=== PATIENT | female | born 1980 | race Caucasian/White ===

== ENCOUNTER → 2020-03-19 14:43 | Outpatient (CLI) | payer BC, SELFPAY ==
--- NOTE | 2020-03-19 14:49 | CT_ITS ---
STUDY: CT MAXILLOFACIAL SINUSES REASON FOR EXAM: Female, 39 years old. Chronic sinusitis. No prior surgery. [employer] navigation protocol. RADIATION DOSAGE (If Supplied By Facility): CTDIvol = ( 33.06 ) mGy, DLP = ( 817.32 ) mGycm TECHNIQUE: The patient was scanned in a multi detector CT scanner. High resolution axial imaging was performed without the administration of intravenous contrast material. Sagittal and coronal images were reconstructed. Individualized dose optimization techniques were used for this CT. COMPARISON: None. FINDINGS: FRONTAL SINUSES: Aplastic ETHMOIDAL SINUSES: Normal aeration, without mucosal inflammatory disease. MAXILLARY SINUSES: Large mucous retention cyst within the maxillary sinuses bilaterally consistent with chronic sinusitis. SPHENOIDAL SINUSES: Normal aeration, without mucosal inflammatory disease. There is patency of the bilateral maxillary infundibuli with normal uncinate processes, ethmoid bullae, and hiatus semilunaris. There are anthony bullosa of the bilateral turbinates. Normal bilateral inferior turbinates. There is a left sided nasal septal deviation, but without a nasal septal spur. There is a large (3 x 4 cm) mucous retention cyst in the posterior aspect of the left nasal cavity extending into the nasopharynx with near-total obstruction of the airway at the level the nasopharynx. This extends inferiorly into the superior aspect of the oropharynx posterior to the uvula. The visualized osseous structures are normal. The visualized bilateral orbital contents are normal. CT/Sinus/Facial Bone IMPRESSION: 1. Chronic sinusitis with large mucous retention cysts in the maxillary sinuses bilaterally. Patent ostiomeatal units bilaterally. 2. Bilateral anthony bullosa and slight deviation nasal septum to the left. 3. Large (3 x 4 cm) mucous retention cyst of the posterior aspect of the left nasal cavity extending posteriorly and inferiorly into the nasopharynx with near the obstruction of the airway. Electronically Signed: Robert Grace MD at 15:14 EST Tel , Service support ,
== END ==
PROVIDERS: PCP Physician Assistant Medical; Referring Provider Otolaryngology Otolaryngic Allergy; Visit Provider Otolaryngology Otolaryngic Allergy
DX: J32.0 Chronic maxillary sinusitis (principal); J33.0 Polyp of nasal cavity
CPT/HCPCS: 70486

== ENCOUNTER → 2022-09-01 | Outpatient (CLI) | payer BC, SELFPAY ==
[2022-09-05 06:07] LABS: Chlamydia By Nucleic Acid AMP Negative (Negative); Gonococcus By Nucleic Acid AMP Negative (Negative)
[2022-09-07 12:08] LABS: HPV APTIMA, High Risk Negative (Negative)
== END | disposition home or self-care (01) ==
PROVIDERS: PCP Physician Assistant Medical; Referring Provider Nurse Practitioner Women's Health; Visit Provider Nurse Practitioner Women's Health
DX: Z11.3 Encounter for screening for infections with a predominantly sexual mode of transmission (principal); Z12.4 Encounter for screening for malignant neoplasm of cervix
CPT/HCPCS: 87491; 87591; 87624; 88175; G0145

== ENCOUNTER → 2022-09-12 | Outpatient (CLI) | payer BC, SELFPAY ==
--- NOTE | 2022-09-12 15:30 | EMB_PTH ---
PATIENT: DARWIN GILES LOC: [facility] U#:[id number] AGE/SX: 41/F ROOM: RE09/12/[address]: Dr. Aida Rodriguez MD : 1980 BED: DIS: 09/12/2022 SPEC #: [id number] RECD: 09/12/22 16:26 STATUS: ROMEL GAMAL #: [id number] KEYSHA: 09/12/22 15:[address]: Aida Rodriguez DEPT: SURGICAL PATHOLOGY RECD BY: Caleb Nava ENTERED: 09/13/22 18:25 SP TYPE: ENDOM BX/C MEHNAZ DR: KAYLA Stanton Tissues: Endometrium, NOS Procedures: Surgery Specimen Level IV HEADER OPERATION: Endometrial biopsy PRE-OP DIAGNOSIS: Abnormal uterine bleeding TISSUE SUBMITTED: Endometrial lining MICROSCOPIC DIAGNOSIS Endometrium, biopsy: Secretory endometrium. AM:fela 09/15/2022 MICROSCOPIC DESCRIPTION Slides are reviewed. GROSS DESCRIPTION Received is one container labeled with the patient's name and not further designated. The specimen consists of multiple fragments of hemorrhagic soft tissue that in aggregate measure 3.0 x 2.5 x 0.3 cm. The specimen is totally submitted in one cassette. / SJ:fela 09/14/2022 TC:5 CPT: 28057
== END | disposition home or self-care (01) ==
LOC: LABSPEC 16:34
PROVIDERS: PCP Physician Assistant Medical; Referring Provider Obstetrics & Gynecology; Visit Provider Obstetrics & Gynecology
DX: N93.9 Abnormal uterine and vaginal bleeding, unspecified (principal)
CPT/HCPCS: 88305

== ENCOUNTER → 2022-09-29 | Outpatient (CLI) | payer BC, SELFPAY | END | disposition home or self-care (01) | LOC: LAB 09:07 | PROVIDERS: PCP Physician Assistant Medical; Referring Provider Obstetrics & Gynecology; Visit Provider Obstetrics & Gynecology | DX: Z00.00 Encounter for general adult medical examination without abnormal findings (principal) ==

== ENCOUNTER 2022-10-11 06:35 | Day surgery (SDC) | payer BC, SELFPAY ==
[2022-09-29 09:26] LABS: Absolute Lymphocyte Count 1.13 X10^3/uL (0.83-4.51); Absolute Neutrophil Count 2.8 X10^3/uL (2.0-7.7); Basophil# 0.04 X10^3/uL; Basophil% 0.9 % (0-1); Eosinophil# 0.07 X10^3/uL; Eosinophils% 1.6 % (0-5); Hematocrit 37.2 % (37-47); Hemoglobin 11.8 g/dL (12.0-15.0); Lymphocyte # 1.13 X10^3/ul (0.83-4.51); Lymphocyte % 26.1 % (19-41); Mean Corp Hgb Conc 31.7 g/dL (32-36); Mean Corpuscular Hgb 27.7 pg (27.0-32.0); Mean Corpuscular Volume 87.3 fL (81-99); Mean Platelet Vol. 9.8 fl (6.2-12.0); Monocyte% 6.9 % (0-10); NRBC Flagged by Analyzer 0 % (0-5); Neutrophil # 2.78 X10^3/uL (2.7-7.7); Neutrophil % 64.3 % (47-70); Platelet Count 310 K/mm3 (150-450); RBC Distribution Width CV 15.2 % (11.6-14.6); RBC Distribution Width SD 48.3 fl (35.1-43.9); Red Blood Count 4.26 M/mm3 (4.2-5.4); White Blood Count 4.3 K/mm3 (4.4-11.0)
[2022-09-29 09:36] LABS: Prothrombin Time (Protime)PT. 12.8 SECONDS (11.7-14.9)
[2022-09-29 09:37] LABS: Partial Thromboplast Time 29.5 Seconds (24.1-36.2)
[2022-09-29 09:47] LABS: Magnesium 2.2 mg/dL (1.6-2.6)
[2022-09-29 10:02] LABS: Thyroid Stim Hormone (TSH) 0.72 uIU/mL (0.358-3.74)
--- NOTE | 2022-10-10 17:54 | HP.PCM_ITS ---
History and Physical MR#: [id number] Acct: [id number] Name: DARWIN GILES Rep #: [id number] : 1980 Provider: Dr. Aida Rodriguez MD Age/Sex: 41/F [place] [facility] [place] Signed Intake Vital Signs 09/12/2313:56 09/30/2307:26 09/30/2307:26 Height 5 ft 5 in 5 ft 5 in 5 ft 5 in Weight: 138 lb 8 oz BMI 23.0 BP 115/64 Intake Visit Reasons: TVHBS Allergies No Known Allergies Allergy (Verified 09/29/22 08:26) Medications bupropion HCl 150 mg tablet,12 hr sustained-release (Wellbutrin SR) 150 mg PO BID 08/22/22 [History Confirmed 09/29/22] ferrous sulfate 325 mg (65 mg iron) tablet (Feosol) 325 mg PO DAILY 08/22/22 [History Confirmed 09/29/22] Post menopausal: No Patient : No : No PFSH Medical History Anemia Anxiety Arthritis Asthma Back pain Depression Former smoker Migraine headache Surgical History Hx of myringotomy S/P nasal polypectomy Family History Grandfather Colon cancerGrandmother Colon cancer Breast cancerMother Colon cancerGrandfather CancerUncle Colon cancer Social History number of children: 2 current occupational status: employed 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 She has heavy menses and cycles are q 28 days lasting 7 days very heavy and heavy crmaping with the bleeding, has anemia down to 8.3 Hg with it, better now up to 10.6 on iron supplements. she has been on an OCP in the past and wants definitive therapy now doesn't want to take hormone pill now. she has a fibroid 2 cm in the uterus with an enlargement of 10 cm. Female Reproductive History Menopausal Symptoms: Yes hot flashes and No night sweats History 3 Elective abortions Hx Para 2 Spontaneous abortions Hx # Term Pregnancies Ectopic pregnancies Hx # Pregnancies Multiple births # of living children 2 Past Pregnancies Del. Date Name GA/Weeks Outcome Route Bth Weight [facility] Unknown Mishel 12/21/1999 Unknown Rossy 05/20/2002 ROS Const Constitutional: Denies fatigue, night sweats, weight gain or weight loss ENT ENT: Reports system reviewed and no additional complaints, except as documented Cardio Card: Denies chest pain Resp Resp: Denies cough or dyspnea GI GI: Reports as per HPI; Denies abdominal pain, constipation, nausea or vomiting : Reports hot flashes and urinary incontinence (mild); Denies nipple discharge, urinary frequency, urinary hesitancy, urinary urgency, vaginal discharge, vaginal dryness, vaginal odor or vaginal pruritus Musc Musc: Reports back pain; Denies arthralgias or muscle weakness Skin Skin/Breast: Denies alopecia, change in hair, dry skin, breast mass, breast pain, breast skin changes or nipple discharge Neuro Neuro: Reports system reviewed and no additional complaints, except as documented Psych Psych: Reports system reviewed and no additional complaints, except as documented Endo Endo: Denies cold intolerance, excessive sweating, heat intolerance or polydipsia Balta/Lymph Hematologic/Lymphatic: Denies easy bleeding, Denies easy bruising and Denies lymphadenopathy Exam Const General: cooperative, healthy appearing, comfortable, no acute distress and well developed Orientation: alert [facility] Head: normal to inspection and normocephalic Ears: hearing grossly normal bilaterally and external ears normal Nose: external nose normal and nares normal Face and sinus: normal facial exam Neck Neck: normal visual inspection and no lymphadenopathy Thyroid: thyroid normal Chest Chest palpation & inspection: normal inspection of the chest Resp Effort & Inspection: normal respiratory effort Auscultation: clear to auscultation bilaterally Cardio Rate: regular rate Rhythm: regular rhythm Heart Sounds: S1 normal and S2 normal GI Inspection: normal to inspection and non-distended Palpation: soft and no hepatosplenomegaly General: bladder normal to palpation External Female Exam: normal external appearance and normal appearance of the urethra Urethra: normal appearance of the urethra, normal palpation and no discharge Speculum Exam - Vagina: normal appearance of the vagina and normal vaginal discharge Speculum Exam - Cervix: normal appearance of the cervix and nontender Bimanual Exam- Vagina & Uterus: normal bimanual exam, uterine size normal, bladder normal to palpation, uterine shape normal, No tender, uterine mobility normal, consistency normal, normal palpation and non-tender Bimanual Exam- Adnexa, other: normal adnexae, adnexae mobile, no masses and normal Pelvic Support: normal Musc Other: gross motor intact no deficits, full bilateral strength Skin General: no rashes or lesions noted Neuro General: patient alert, patient awake, moves all extremities and no focal motor deficits Motor: muscle tone normal throughout Extrem General: normal to inspection and no pedal edema Psych Appearance: grossly normal Mental Status: mental status grossly normal Affect: normal affect Speech and Movement: speech and movement normal Coding Level of Care Code No Charge Diagnoses Abnormal uterine bleeding N93.9 Fibroid, uterine D25.9 Family history of colon cancer in mother Z80.0 Assessment and Plan Assessment and Plan (1) Abnormal uterine bleeding: Status: Acute Comment: 10 cm uterus 2.5cm fibroid, EMB nl. Lysteda ordered- minimal decrease in b leeding but longer cycle that month . plan TVHBS (2) Fibroid, uterine: Status: Acute Comment: lysteda. plan TVHBS. (3) Family history of colon cancer in mother: Status: Acute Comment: age 50. MGM and greatMGM also. PGF. Pt has scopes every 5yr. Last scope 2020. Pt neg genetic testing Plan After discussing the patient's diagnosis and treatment plan options, patient wishes to proceed with surgical management. I have discussed with the patient the risks, benefits, and alternatives of the procedure which include but are not limited to risks of anesthesia, bleeding, infection, possible damage to bowel, bladder, or surrounding vasculature which could lead to additional surgery to evaluate any complications. Patient agrees to procedure and wishes to proceed. ACOG/uptodate references given for additional information regarding procedure.
[2022-10-11] VITALS (13 sets, daily range): BP systolic 99–121; BP diastolic 60–82; PULSE 70–98; RESP 14–18; TEMP 36.2–37; O2SAT 98–100; BMI 23.1
--- NOTE | 2022-10-11 07:03 | OP.PCM_ITS ---
Problems Associated Problem List Diagnoses (1) Fibroid, uterine: (2) Abnormal uterine bleeding: Report of Operation Date of Procedure: 10/11/22 Pre-Operative Diagnosis: see A/P Post-Operative Diagnosis: same Surgery/Procedure Performed:: TVH BS Description of Surgical Findings:: enlarged fibroid boggy uterus Surgeon: Aida Rodriguez gericare aide teacher: None (mark rodríguez) gericare aide teacher: Ayaka Brower Type of Anesthesia: General Specimen's removed: uterus, tubes Drains: teixeira Estimated Blood Loss (mL): 200 Fluids Replaced: crystalloid Description of Procedure: Patient was taken to the operating room and was placed under general anesthesia was prepped and draped in normal sterile fashion in the dorsal lithotomy position. Preoperative antibiotics and SCDs and Teixeira catheter was placed inside the bladder. Weighted speculum was placed in the vagina and the anterior and posterior lip of the cervix was grasped with 2 Huong clamps and circumferen tially injected with dilute vasopressin. A circumferential incision was made with a scalpel and the posterior cul-de-sac was entered into sharply and a longneck speculum was placed. The anterior cul-de-sac was also dissected down and entered into sharply and the uterosacral ligaments were clamped cut and suture ligated bilaterally followed by the cardinal ligaments which were Clamped cut and suture ligated bilaterally with 0 Monocryl. The uterus serially descended and progressive bites were taken bilaterally up to the level of the utero-ovarian ligament bilaterally which was clamped transected and double ligated with 0 Monocryl suture and 0 Vicryl free tie. Bilateral fallopian tubes and ovaries were well visualized and noted be within normal limits and the bilateral fallopian tubes were transected across the base with a Maty clamp and removed and sutured with 0 Vicryl suture. the uterus was large and required additional suturing. Excellent hemostasis was noted. additional sutures needed at right cuff for hemostasis. The vagina was closed with [id number] 0 Vicryl pop offs including the posterior and anterior peritoneum in the reapproximation. Excellent hemostasis was noted. All instruments removed from the vagina clear urine was noted at the end of the procedure and patient was awoken and taken recovery in stable condition. Grafts/Implants Used: none Complications none Admit VTE Documentation VTE Present on Admission: No VTE Mechan Device Prophylaxis: [facility] VTE Pharm Prophylaxis ordered?: Yes Multi Select Codes Urinary/Genital Urinary/Genital CPT Codes: 07482 TVH+BS/O <250gr uterus
--- NOTE | 2022-10-11 07:04 | DCINST_ITS ---
Discharge Instructions Diet Discharge Diet: No restrictions Activity Discharge Activity: Return to Normal Activity, May Not Drive (while taking narcotic pain medications.) and May Shower May resume sexual activity in: 6-8 weeks Dressing / Incision Call your doctor if your incision/area has: Continuous Slow Oozing, Sudden Increased Bleeding, Increased Pain/ Swelling, Increased Redness and Foul Smelling Discharge Call your doctor if you observe: Fever of 101 or Higher, Inability to urinate, Inability to have a bowel movement and Using more than 1 pad per hour Follow Up Care Please Follow Up With: Aida Rodriguez MD Test Results: Test results from this visit will be discussed in further detail at your follow- up appointment, if applicable. Discharge Plan Admission Attending Provider: Aida Rodriguez Primary Care Provider: Angelia Guerra Discharge Orders/Prescriptions Prescriptions: New oxycodone-acetaminophen [Percocet] 5-325 mg tablet 1 tab PO Q6H PRN (Reason: pain) 7 Days Qty: 20 0RF naproxen [naproxen] 500 mg tablet 500 mg PO BID PRN PRN (Reason: Pain) Qty: 30 1RF Continued bupropion HCl [Wellbutrin SR] 150 mg tablet sustained-release 12 hr 150 mg PO BID ferrous sulfate [Feosol] 325 mg (65 mg iron) tablet 325 mg PO DAILY Referrals / Follow Up: Angelia Guerra PA [Primary Care Provider] - Disposition Disposition (needs filled in before D/C Order can be placed): Home, Self Care
[2022-10-11 07:06] LABS: Internal QC Validated? YES +Cl - CLEAR BKGD; Pregnancy, Urine Negative Negative
[2022-10-11] MEDS: Scopolamine 1mg/72hr Patch 1 PATCH TD (07:18)
[2022-10-11] MEDS: Phenazopyridine 95 MG Tablet 190 MG PO (07:18)
[2022-10-11] MEDS: Enoxaparin 40 MG/0.4 ML Syringe SC (07:18)
[2022-10-11] MEDS: Celecoxib 200 MG Capsule 400 MG PO (07:19)
[2022-10-11] MEDS: Acetaminophen 500 MG Tablet 1000 MG PO ×2 (07:19→12:00)
[2022-10-11] MEDS: dexAMETHasone 4 MG/ML Vial 8 MG IV (07:19)
[2022-10-11] MEDS: Lactated Ringers 1,000 ML 40 ML IV ×3 (07:20→12:13)
[2022-10-11] MEDS: Gabapentin 600 MG Tablet PO (07:20)
[2022-10-11] MEDS: Magnesium 1 GM over 15 mins IV (07:20)
[2022-10-11] MEDS: Cefazolin 2 GM in 0.9% Normal Saline 100 ML IV (08:15)
--- NOTE | 2022-10-11 08:30 | HYST_PTH ---
PATIENT: DARWIN GILES [place] [facility] [place] U[place][id number] AGE/SX: 41/F ROOM: RE10/11/[address]: Dr. Aida Rodriguez MD : 1980 BED: DIS: 10/11/2022 SPEC #: [id number] RECD: 10/11/22 10:26 STATUS: ROMEL REDaljit #: [id number] KEYSHA: 10/11/22 08:[address]: Aida Rodriguez DEPT: SURGICAL PATHOLOGY RECD BY: Radha Vivas ENTERED: 10/11/22 11:13 SP TYPE: HYSTERECT OTHR DR: KAYLA Stanton Tissues: Uterus, NOS Procedures: Surgery Specimen Level V HEADER OPERATION: ERAS, vaginal hysterectomy, bilateral salpingectomy PRE-OP DIAGNOSIS: Abnormal uterine bleeding, uterine fibroid, family history of colon cancer TISSUE SUBMITTED: Cervix, uterus and bilateral fallopian tubes MICROSCOPIC DIAGNOSIS Uterus, hysterectomy: Cervix - mild chronic inflammation. Endometrium - secretory endometrium. Myometrium - leiomyomas. Right and left fallopian tubes - benign paratubal cyst. AM:fela 10/12/2022 MICROSCOPIC DESCRIPTION Slides are reviewed. GROSS DESCRIPTION Received in fixative is one container labeled with the patient's name and designated cervix, uterus, bilateral fallopian tubes. The specimen consists of a hysterectomy specimen consisting of uterus with cervix and detached bilateral fallopian tubes. The uterus with cervix weighs 180 gm and measures 12.0 x 7.0 x 7.5 cm. The serosal surface is epperson, glistening. A subserosal nodule is noted at the anterior surface. The ectocervical mucosa is unremarkable. The external os is oval and patulous in contour. The endocervical canal measures 3.5 cm in length and the endocervical mucosa is unremarkable. The triangular endometrial cavity measures 5.5 cm in length and up to 4.0 cm in width. The endometrium is epperson, glistening and measures up to 1.0 cm in thickness. Sections of the uterine wall reveal one intramural and two subserosal nodular masses measuring 3.0 cm in diameter. A smaller nodular mass is also noted measuring 1.5 cm in greatest dimension. Sections of these masses reveal epperson whorled cut surfaces without areas of hemorrhage, necrosis or cystic degeneration. The uterine wall measures up to 2.5 cm in thickness. The detached fallopian tubes are not identified as right or left and measures 4.0 cm in length and 0.8 cm in diameter and 4.5 cm in length and 0.5 cm in diameter. Fimbrial ends are identified. Sections reveal unremarkable cut surfaces. Rn Rehab sections are submitted in 11 cassettes as follows: 1 - anterior cervix, 2 - posterior cervix, 3 & 4 - anterior uterine wall, 5-7 - posterior uterine wall, 8??larger nodular mass, 9 - smaller nodular mass, 10 - one fallopian tube, 11 - second fallopian tube. / BART:fela 10/11/2022 TC:1 CPT: 92691
[2022-10-11] MEDS: Vasopressin 20 UNITS/ML Vial (08:31)
[2022-10-11] MEDS: Lubricating Jelly 60 GM Tube 30 GM (08:32)
[2022-10-11] MEDS: Ondansetron 4 MG/2 ML Vial IV (09:43)
--- NOTE | 2022-10-11 11:13 | SUR.PHASEI ---
PATIENT ARRIVED TO PACU WITH CUETO CATHETER IN PLACE; DRAINING CLEAR YELLOW URINE. DR JEFFERSON CALLED AT 1010 TO CLARIFY IF SHE WANTED CUETO CATHETER TO REMAIN IN PLACE. DR. JEFFERSON GAVE ORDER TO D/C CUETO. CUETO CATHETER DISCONTINUED INTACT AT 10:20.
[2022-10-11] MEDS: Ketorolac 30 MG/ML Syringe IV (11:37)
[2022-10-11 13:13] LABS: Hematocrit 36.4 % (37-47); Hemoglobin 11.6 g/dL (12.0-15.0); Mean Corp Hgb Conc 31.9 g/dL (32-36); Mean Corpuscular Hgb 27.9 pg (27.0-32.0); Mean Corpuscular Volume 87.5 fL (81-99); Platelet Count 255 K/mm3 (150-450); RBC Distribution Width CV 14.7 % (11.6-14.6); RBC Distribution Width SD 47.5 fl (35.1-43.9); Red Blood Count 4.16 M/mm3 (4.2-5.4); White Blood Count 11.9 K/mm3 (4.4-11.0)
--- NOTE | 2022-10-11 13:25 | SUR.PHASEII ---
Patient resting quietly and states her pain is tolerable. CBC drawn as ordered. Pt does c/o of dizziness when sitting up; removed scopolamine patch. Will monitor.
[2022-10-11] MEDS: Lactated Ringers 1,000 ML 999 ML IV (15:22)
--- NOTE | 2022-10-11 16:22 | SUR.PHASEII ---
GAVE PT SPRITE TO DRINK TO BEGIN PO CHALLENGE AFTER SHE USED THE BSC AND DID WELL. PER PT I AM STARTING TO FEEL BETTER.
== END 2022-10-11 17:17 | disposition home or self-care (01) ==
LOC: SDC 06:40 → AC 06:40
PROVIDERS: Anesthesiology; PCP Physician Assistant Medical; Referring Provider Obstetrics & Gynecology; Visit Provider Obstetrics & Gynecology
PROC: (CPT 58260; principal; 2022-10-11 08:10)
DX: D25.9 Leiomyoma of uterus, unspecified (principal); N83.8 Other noninflammatory disorders of ovary, fallopian tube and broad ligament; N93.9 Abnormal uterine and vaginal bleeding, unspecified; N95.1 Menopausal and female climacteric states; D64.9 Anemia, unspecified; Z87.891 Personal history of nicotine dependence
CPT/HCPCS: 58262; 36415; 81025; 83735; 84443; 85025; 85027; 85610; 85730; 86850; 86900; 86901; 88307; J7120; J2405; J3475